=== PATIENT | male | born 1985 ===

== ENCOUNTER 2020-01-07 10:02 | Outpatient (NON) | payer BC, SELFPAY ==
[2020-01-08 01:01] LABS: SARS-CoV-2 RNA PCR Negative
== END 2020-01-07 10:03 ==
PROVIDERS: Visit Provider Family Medicine
DX: J20.9 Acute bronchitis, unspecified (principal); Z20.828 Contact with and (suspected) exposure to other viral communicable diseases
CPT/HCPCS: 87635; C9803; U0003

== ENCOUNTER 2020-05-24 13:13 | Emergency (ER) | payer BC, SELFPAY ==
--- NOTE | 2020-05-24 13:27 | ED.URI ---
HPI - URI/Sore Throat General Chief Complaint: Shortness of Breath/Dyspnea Stated Complaint: Asthma Attack Time Seen by Provider: 05/24/20 13:27 Source: patient, RN notes reviewed and old records reviewed Mode of arrival: ambulatory Limitations: no limitations History of Present Illness HPI Narrative: 34 year old male who presents to express care with complaints of increase shortness of breath and wheezing for the past 2 days. Patient states that he has been using his albuterol inhaler more frequently and with less effectiveness noted. Patient states that his breathing feels tight and he is more dyspneic at rest and with any activity. He reports that he was around a campfire on Tuesday and that he has seasonal allergies and history of asthma. Patient is anxious with accessory muscle use and mild tachypnea, is able to speak in full sentences, SAO2 95% on arrival to triage. Patient has decreased breath sounds with some scattered wheezing noted throughout lung reno. Pertinent past history: asthma and seasonal allergies Consistency: progressively worsening Severity: moderate Exacerbating factors: exertion Treatments prior to arrival: other (inhaler) Related Data Allergies Allergy/AdvReac Type Severity Reaction Status Date / Time Penicillins Allergy Unknown Edema Verified 08/21/18 16:19 Review of Systems Review of Systems: Narrative: CONSTITUTIONAL: Denies fever, chills, or sweats. EYES: Denies visual changes, redness, or discharge. ENT: positive clear rhinorrhea,no congestion, sore throat, or otalgia. CARDIOVASCULAR: Denies chest pain reports tightness with breathing to his chest,denies pressure or palpitations, or edema. RESPIRATORY: positive for cough or dyspnea. GASTROINTESTINAL: Denies abdominal pain, nausea, vomiting, or diarrhea. GENITOURINARY: Denies dysuria or hematuria. SKIN: Denies rash or itching. MUSCULOSKELETAL: Denies back pain, joint pain, or myalgia. NEUROLOGIC: Denies headache, numbness, or weakness. PSYCHIATRIC:Positive for anxiety or depression. All systems reviewed & are unremarkable except as noted in HPI and below PMFSH Past Medical History Medical History (Updated 05/26/20 @ 20:20 by Neda Burk NP) Abnormal fasting glucose Acute bronchitis Chronic depression Mild intermittent asthma in adult without complication STD exposure Surgical History Surgical History (Updated 05/26/20 @ 20:09 by Neda L. Bhargavi, [employer]ER) No history of previous surgery Family History Family History Father Family history of hypercholesterolemia Mother Family history of arthritis Social History Social History (Updated 05/26/20 @ 20:05 by Neda Burk NP) Smoking status: Never smoker Alcohol intake: current Substance use: never Living arrangements: with family Gender identity (if verbalized by the patient): Male Comments At time of signature, agree with nursing past medical, surgical, social and family history. There is no relevant family history pertinent to the presenting complaint Exam Narrative: Exam Narrative: GENERAL: Well-appearing, well-nourished, and in mild acute distress. HEAD: Normocephalic, atraumatic. EYES: PERRLA and EOMI. ENT: Nares red turbinates boggy, clear rhinorrhea no epistaxis. Mucous membranes moist.TM's normal with good light reflex, throat pink with no exudates or lesions, no tonsil enlargement NECK: Supple.no lymphadenopathy CHEST: decreased with scattered wheezing on auscultation. Dyspnea at rest and with exertion SAO2 95% on arrival to clinic with tachypnea and accessory muscle use, HEART: Regular rate and rhythm. No murmur heard. Normal peripheral pulses. ABDOMEN: Soft, nontender, nondistended, normal active bowel sounds. EXTREMITIES: Normal range of motion. No edema. SKIN: Warm, dry, no rash. NEURO: No focal deficits. Alert and oriented x3.anxious Course Vital Signs Vital signs: Vital Signs Temperature 36
[2020-05-24] MEDS: ALBUTEROL SULFATE NEB 2.5 MG/3 ML INH INHALATION ×2 (13:32→13:58)
[2020-05-24] MEDS: IPRATROPIUM BR 0.02% INH SOLN 0.5 MG/2.5 ML VIAL INHALATION (13:32)
[2020-05-24 13:35] VITALS: BP 144/109; PULSE 99; RESP 24; TEMP 36.2; O2SAT 95
[2020-05-24 13:53] VITALS: PULSE 102; RESP 22; O2SAT 91
[2020-05-24 14:12] VITALS: PULSE 102; RESP 20; O2SAT 94
[2020-05-24 14:29] VITALS: BP 143/94; PULSE 98; RESP 20; O2SAT 92
--- NOTE | 2020-05-24 14:32 | PC.NURSE ---
1428-Skin color pink, still slightly moist but warm to touch. Resp even and unlabored.
== END 2020-05-24 14:51 | disposition home or self-care (01) ==
PROVIDERS: Emergency Provider Registered Nurse; PCP Family Medicine
DX: J45.901 Unspecified asthma with (acute) exacerbation (principal); F32.9 Major depressive disorder, single episode, unspecified
CPT/HCPCS: 94640; 99213; G0463